=== PATIENT | male | born 1965 | race Caucasian/White ===

== ENCOUNTER 2019-12-11 11:37 | Emergency (ER) | payer MEDICARE, OTHER ==
[~2019-12-11] VITALS: Ht 175.3 cm; Wt 116.2 kg
[2019-12-11] MEDS ORDERED: IV NORMAL SALINE 1,000ML 1,000 ML IV ONE (11:45)
--- NOTE | 2019-12-11 12:18 | EKG ---
[address] [address] Test Date: 2019-12-11 Test Time: 12:02:22 Pat Name: HOMA WINGSLAUGHTERSANGIE Department: Room: Gender: M Inspector [place]: : 1965 Requested By: EDGARDO HUFFMAN Order Number: [id number] Reading MD: Measurements Intervals [place] Rate: 78 P: 38 W[place]: 158 QRS: -34 QRSD: 122 T: 39 QT: 368 QTc: 423 Interpretive Statements SINUS RHYTHM LEFT ATRIAL ABNORMALITY ABNORMAL LEFT AXIS DEVIATION LEFT ANTERIOR FASCICULAR BLOCK INCOMPLETE RIGHT BUNDLE BRANCH BLOCK QRS(T) CONTOUR ABNORMALITY CONSISTENT WITH SEPTAL INFARCT PROBABLY OLD ABNORMAL ECG RI6.02 No previous ECG available for comparison
[2019-12-11 12:29] LABS: BASO % 0 % (0-3); EOS # 0.2 x10^3/uL (0.0-0.7); EOS % 2 % (0-3); HEMATOCRIT 39.5 % (39.0-53.0); HEMOGLOBIN 12.6 g/dL (13.0-17.5); LYMPH # 1.3 x10^3/uL (1.0-4.8); LYMPH % 11 % (24-48); MEAN CORPUSCULAR HEMOGLOBIN 34 pg (25-35); MEAN CORPUSCULAR HGB CONC 32 g/dL (31-37); MEAN CORPUSCULAR VOLUME 108 fL (79-100); MONO # 0.6 x10^3/uL (0.0-1.1); MONO % 5 % (0-9); NEUT # 9.5 x10^3uL (1.8-7.7); NEUT % 82 % (31-73); PLATELET COUNT 245 x10^3/uL (140-400); RED BLOOD COUNT 3.67 x10^6/uL (4.30-5.70); RED CELL DISTRIBUTION WIDTH 17.7 % (11.5-14.5); WHITE BLOOD COUNT 11.7 x10^3/uL (4.0-11.0)
--- NOTE | 2019-12-11 12:42 | RAD ---
CT head and cervical spine without contrast History: Altered mental status, pain, history of falls Technique: Noncontrast CT imaging was performed of the head and cervical spine. Multiplanar reconstruction images are submitted. Exposure: One or more of the following individualized dose reduction techniques were utilized for this examination: 1. Automated exposure control 2. Adjustment of the mA and/or kV according to patient size 3. Use of iterative reconstruction technique. Head CT Comparison: None Findings: There is fairly severe motion degradation. No convincing acute extra-axial or parenchymal hemorrhage is identified. There is no significant intra-axial mass effect, midline shift, or extra-axial fluid collection. The lim-white differentiation of the major vascular territories is preserved. The ventricles, sulci, and cisterns are within normal limits in size and configuration. The mastoid air cells and the visualized paranasal sinuses are aerated. There is no significant focal calvarial abnormality. Impression: 1. No obvious acute intracranial abnormality is identified, exam degraded by motion. Cervical spine CT Comparison: None Findings: There is motion degradation. No convincing acute cervical spine fracture is identified. Vertebral body stature and AP alignment are within normal limits. Atlanto-axial distance is within normal limits. There is appropriate alignment of lateral masses of C1 relative to C2. Occipital condylar-C1 relationship is maintained. There is mild cervical dextroscoliosis. There is multilevel cervical facet degenerative change. There is likely moderate narrowing of the right C4-5 neural foramen. There is some atherosclerotic calcification of the carotid arteries in the neck bilaterally. Impression: 1. No convincing acute cervical spine fracture is identified, exam degraded by motion. Electronically signed by: Evelio Anne MD (12/11/2019 12:39 PM) [id number]
[2019-12-11 12:45] LABS: CALCIUM 8.7 mg/dL (8.5-10.1); CREATININE 1.9 mg/dL (0.7-1.3); POTASSIUM 4.8 mmol/L (3.5-5.1)
[2019-12-11 12:57] LABS: ALBUMIN 2.6 g/dL (3.4-5.0); ALBUMIN/GLOBULIN RATIO 0.6 (1.0-1.7); MAGNESIUM 2.4 mg/dL (1.8-2.4); TOTAL BILIRUBIN 0.1 mg/dL (0.2-1.0); TOTAL PROTEIN 7.2 g/dL (6.4-8.2)
--- NOTE | 2019-12-11 13:38 | PHYS DOC ---
Past History Past Medical History: Anxiety, COPD, Depression, Diabetes, GERD, High Cholesterol, Hypertension, Pancreatitis Past Surgical History: Other Additional Past Surgical Histo: STENTS TO BOTH LEGS, KNA TO RIGHT LEG, GANGRENE TO GROIN Additional Smoking Information: 2 PACKS/DAY Alcohol Use: None General Adult EDM: Chief Complaint: ALTERED MENTAL STATUS HPI: HPI: Patient is a [age] year old [sex] who presents with [] Review of Systems: Review of Systems: Constitutional: Denies fever or chills Eyes: Denies change in visual acuity HENT: Denies nasal congestion or sore throat Respiratory: Denies cough or shortness of breath Cardiovascular: Denies chest pain or edema GI: Denies abdominal pain, nausea, vomiting, bloody stools or diarrhea : Denies dysuria Musculoskeletal: Denies back pain or joint pain Integument: Denies rash Neurologic: Denies headache, focal weakness or sensory changes Endocrine: Denies polyuria or polydipsia Lymphatic: Denies swollen glands Psychiatric: Denies depression or anxiety Heart Score: Risk Factors: Risk Factors: DM, Current or recent (<one month) smoker, HTN, HLP, family history of CAD, obesity. Risk Scores: Score 0 - 3: 2.5% MACE over next 6 weeks - Discharge Home Score 4 - 6: 20.3% MACE over next 6 weeks - Admit for Clinical Observation Score 7 - 10: 72.7% MACE over next 6 weeks - Early Invasive Strategies Current Medications: Current Meds: Current Medications Medications (Trade) Dose Ordered Sig/Gabriel Start Time Stop Time Status Last Admin Dose Admin Sodium Chloride 1,000 ml @ 1,000 mls/hr 1X ONCE 12/11/19 11:45 12/11/19 12:44 DC 12/11/19 12:34 1,000 MLS/HR Allergies: Allergies: Allergies Coded Allergies Type Severity Reaction Last Updated Verified No Known Drug Allergies 12/11/19 No Physical Exam: PE: Constitutional: Well developed, well nourished, no acute distress, non-toxic appearance. [] HENT: Normocephalic, atraumatic, bilateral external ears normal, oropharynx moist, no oral exudates, nose normal. [] Eyes: PERRLA, EOMI, conjunctiva normal, no discharge. [] Neck: Normal range of motion, no tenderness, supple, no stridor. [] Cardiovascular:Heart rate regular rhythm, no murmur [] Lungs & Thorax: Bilateral breath sounds clear to auscultation [] Abdomen: Bowel sounds normal, soft, no tenderness, no masses, no pulsatile masses. [] Skin: Warm, dry, no erythema, no rash. [] Back: No tenderness, no CVA tenderness. [] Extremities: No tenderness, no cyanosis, no clubbing, ROM intact, no edema. [] Neurologic: Alert and oriented X 3, normal motor function, normal sensory function, no focal deficits noted. [] Psychologic: Affect normal, judgement normal, mood normal. [] Current Patient Data: Labs: Laboratory Tests Test 12/11/19 11:58 12/11/19 12:09 Glucose (Fingerstick) 207 mg/dL (70-99) H White Blood Count 11.7 x10^3/uL (4.0-11.0) H Red Blood Count 3.67 x10^6/uL (4.30-5.70) L Hemoglobin 12.6 g/dL (13.0-17.5) L Hematocrit 39.5 % (39.0-53.0) Mean Corpuscular Volume 108 fL (79-100) H Mean Corpuscular Hemoglobin 34 pg (25-35) Mean Corpuscular Hemoglobin Concent 32 g/dL (31-37) Red Cell Distribution Width 17.7 % (11.5-14.5) H Platelet Count 245 x10^3/uL (140-400) Neutrophils (%) (Auto) 82 % (31-73) H Lymphocytes (%) (Auto) 11 % (24-48) L Monocytes (%) (Auto) 5 % (0-9) Eosinophils (%) (Auto) 2 % (0-3) Basophils (%) (Auto) 0 % (0-3) Neutrophils # (Auto) 9.5 x10^3uL (1.8-7.7) H Lymphocytes # (Auto) 1.3 x10^3/uL (1.0-4.8) Monocytes # (Auto) 0.6 x10^3/uL (0.0-1.1) Eosinophils # (Auto) 0.2 x10^3/uL (0.0-0.7) Basophils # (Auto) 0.0 x10^3/uL (0.0-0.2) Prothrombin Time 9.8 SEC (9.4-11.4) Prothrombin Time INR 0.9 (0.9-1.1) Activated Partial Thromboplast Time 27 SEC (23-33) Sodium Level 136 mmol/L (136-145) Potassium Level 4.8 mmol/L (3.5-5.1) Chloride Level 101 mmol/L (98-107) Carbon Dioxide Level 24 mmol/L (21-32) Anion Gap 11 (6-14) Blood Urea Nitrogen 30 mg/dL (8-26) H Creatinine 1.9 mg/dL (0.7-1.3) H Estimated GFR (Cockcroft-Gault) 37.0 BUN/Creatinine Ratio 16 (6-20) Glucose Level 213 mg/dL (70-99) H Lactic Acid Level 1.2 mmol/L (0.4-2.0) Calcium Level 8.7 mg/dL (8.5-10.1) Magnesium Level 2.4 mg/dL (1.8-2.4) Total Bilirubin 0.1 mg/dL (0.2-1.0) L Aspartate Amino Transferase (AST) 12 U/L (15-37) L Alanine Aminotransferase (ALT) 11 U/L (16-63) L Alkaline Phosphatase 146 U/L (46-116) H Ammonia 15 mcmol/L (11-34) Troponin I Quantitative < 0.017 ng/mL (0-0.055) Total Protein 7.2 g/dL (6.4-8.2) Albumin 2.6 g/dL (3.4-5.0) L Albumin/Globulin Ratio 0.6 (1.0-1.7) L Vital Signs: Vital Signs Date Time Temp Pulse Resp B/P (MAP) Pulse Ox O2 Delivery O2 Flow Rate FiO2 12/11/19 12:48 79 20 116/77 (90) 95 Room Air 12/11/19 11:45 98.0 EKG: EKG: @1202 NSR at 78bpm, NO ST elevation, QRS 122ms, QT/QTc 368/423ms, incomplete RBBB, LAFB Radiology/Procedures: Radiology/Procedures: PROCEDURE: CT HEAD AND CERVICAL SPINE WO CT head and cervical spine without contrast History: Altered mental status, pain, history of falls Technique: Noncontrast CT imaging was performed of the head and cervical spine. Multiplanar reconstruction images are submitted. Exposure: One or more of the following individualized dose reduction techniques were utilized for this examination: 1. Automated exposure control 2. Adjustment of the mA and/or kV according to patient size 3. Use of iterative reconstruction technique. Head CT Comparison: None Findings: There is fairly severe motion degradation. No convincing acute extra-axial or parenchymal hemorrhage is identified. There is no significant intra-axial mass effect, midline shift, or extra-axial fluid collection. The lim-white differentiation of the major vascular territories is preserved. The ventricles, sulci, and cisterns are within normal limits in size and configuration. The mastoid air cells and the visualized paranasal sinuses are aerated. There is no significant focal calvarial abnormality. Impression: 1. No obvious acute intracranial abnormality is identified, exam degraded by motion. Cervical spine CT Comparison: None Findings: There is motion degradation. No convincing acute cervical spine fracture is identified. Vertebral body stature and AP alignment are within normal limits. Atlanto-axial distance is within normal limits. There is appropriate alignment of lateral masses of C1 relative to C2. Occipital condylar-C1 relationship is maintained. There is mild cervical dextroscoliosis. There is multilevel cervical facet degenerative change. There is likely moderate narrowing of the right C4-5 neural foramen. There is some atherosclerotic calcification of the carotid arteries in the neck bilaterally. Impression: 1. No convincing acute cervical spine fracture is identified, exam degraded by motion. Electronically signed by: Evelio Anne MD (12/11/2019 12:39 PM) [id number] Course & Med Decision Making: Course & Med Decision Making Pertinent Labs and Imaging studies reviewed. (See chart for details) [] Dragbing Disclaimer: Dragon Disclaimer: This electronic medical record was generated, in whole or in part, using a voice recognition dictation system. Departure Departure: Impression: Primary Impression: Altered mental status Qualified Codes: R41.82 - Altered mental status, unspecified Additional Impressions: Left against medical advice Urinary tract infection Qualified Codes: N39.0 - Urinary tract infection, site not specified; R31.9 - Hematuria, unspecified Disposition: 01 HOME/RESIDENCE PRIOR TO ADM Condition: STABLE Referrals: MILLI LEA MD (PCP) LISA MURGUIA MD Patient Instructions: Altered Mental Status, Discharge Against Medical Advice, Urinary Tract Infection, Xxph-so-Jazn Scripts Cephalexin (KEFLEX) 500 Mg Capsule 1 CAP PO TID for UTI for 7 Days, #21 CAP 0 Refills Prov: EDGARDO HUFFMAN DO 12/11/19 Justification of Admission: Justification of Admission: Justification of Admission Dx: N/A EDGARDO HUFFMAN DO Dec 11, 2019 13:38
[2019-12-11 14:19] VITALS: BP 111/83
--- NOTE | 2019-12-11 14:30 | RAD ---
EXAM: CHEST 1 VIEW History: Altered mental status COMPARISON: None available. TECHNIQUE: Single portable radiograph of the chest FINDINGS: Low lung volumes and technique accentuates heart size and pulmonary vascularity. Mild cardiomegaly. Mild bibasilar lung airspace opacities likely atelectasis or infiltrates. IMPRESSION: 1. Mild bibasilar lung airspace opacities likely atelectasis or infiltrates. Electronically signed by: Venkata Puri MD (12/11/2019 2:27 PM) [id number]
[2019-12-11 15:01] LABS: BARBITURATES NEG (NEG); BENZODIAZEPINES NEG (NEG); CANNABINOIDS NEG (NEG); COCAINE NEG (NEG); METHADONE NEG (NEG); OPIATES NEG (NEG); PHENCYCLIDINE NEG (NEG)
[2019-12-11 15:02] LABS: AMPHETAMINE/METHAMPHETAMINE NEG (NEG)
[2019-12-11 15:13] LABS: BILIRUBIN,URINE NEG (NEG); CLARITY,URINE CLOUDY; COLOR,URINE AMBER; GLUCOSE,URINE NEG (NEG); NITRITE,URINE NEG (NEG); RBC,URINE >40 /HPF (0-2); UROBILINOGEN,URINE 0.2 mg/dL (0.2 mg/dL)
[2019-12-11 15:14] LABS: BACTERIA,URINE MOD /HPF (0-FEW); SQUAMOUS EPITHELIAL CELL,UR FEW /LPF
[2019-12-11 15:15] LABS: HYALINE CASTS, URINE OCC /HPF
[2019-12-11] MEDS ORDERED: IV NORMAL SALINE 50ML 50 ML ONE (15:23)
[2019-12-11] MEDS ORDERED: cefTRIAXone SODIUM 1 GM VIAL ONE (15:23)
[2019-12-11] MEDS ORDERED: CEPH-264 PO (15:25)
== END 2019-12-11 16:06 | disposition home or self-care (01) ==
LOC: ER 11:37
DX: R41.82 Altered mental status, unspecified (principal); N39.0 Urinary tract infection, site not specified; R31.9 Hematuria, unspecified; F41.9 Anxiety disorder, unspecified; J44.9 Chronic obstructive pulmonary disease, unspecified; F32.9 Major depressive disorder, single episode, unspecified; E11.9 Type 2 diabetes mellitus without complications; K21.9 Gastro-esophageal reflux disease without esophagitis; E78.00 Pure hypercholesterolemia, unspecified; I10 Essential (primary) hypertension; F17.200 Nicotine dependence, unspecified, uncomplicated
CPT/HCPCS: 36415; 70450; 71045; 72125; 80053; 80307; 81001; 82140; 82947; 83605; 83735; 84484; 85025; 85610; 85730; 93005; 96360; 99285; J7030

== ENCOUNTER 2019-12-18 15:46 | Emergency (ER) | payer MEDICARE, OTHER ==
[~2019-12-18] VITALS: Ht 175.3 cm; Wt 116.2 kg
[~2019-12-18 15:46] MED LIST: CEPH-264 PO
[2019-12-18] MEDS ORDERED: LIDOCAINE 1%/EPI 1:100,000 20 ML VIAL. IJ ONE (16:00)
[2019-12-18] MEDS ORDERED: DIPH,PERTUSS(ACELL),TET VAC/PF 0.5 ML SYRINGE. VAX IM ONE (16:30)
[2019-12-18 17:15] VITALS: BP 134/77
--- NOTE | 2019-12-18 17:28 | PHYS DOC ---
Past History Past Medical History: Anxiety, COPD, Depression, Diabetes, GERD, High Cholesterol, Hypertension, Pancreatitis Past Surgical History: Other Additional Past Surgical Histo: STENTS TO BOTH LEGS, KNA TO RIGHT LEG, GANGRENE TO GROIN Additional Smoking Information: 2 PACKS/DAY Alcohol Use: None General Adult EDM: Chief Complaint: LACERATION/AVULSION HPI: HPI: Patient is a 54-year-old male who presented to ER today for evaluation of a laceration of his left hand. Patient said he tried to open a tuna can with it hand and excellently cut his left hand. Patient is not up-to-date on his tetanus vaccination. Patient is on blood thinner. Patient can open and close his left hand without any problem, he can move the thumb in all direction without any problem. Review of Systems: Review of Systems: Constitutional: Denies fever or chills Eyes: Denies change in visual acuity HENT: Denies nasal congestion or sore throat Respiratory: Denies cough or shortness of breath Cardiovascular: Denies chest pain or edema GI: Denies abdominal pain, nausea, vomiting, bloody stools or diarrhea : Denies dysuria Musculoskeletal: Denies back pain or joint pain Integument: positive for laceration of left hand Neurologic: Denies headache, focal weakness or sensory changes Endocrine: Denies polyuria or polydipsia Lymphatic: Denies swollen glands Psychiatric: Denies depression or anxiety Heart Score: Risk Factors: Risk Factors: DM, Current or recent (<one month) smoker, HTN, HLP, family history of CAD, obesity. Risk Scores: Score 0 - 3: 2.5% MACE over next 6 weeks - Discharge Home Score 4 - 6: 20.3% MACE over next 6 weeks - Admit for Clinical Observation Score 7 - 10: 72.7% MACE over next 6 weeks - Early Invasive Strategies Current Medications: Current Meds: Current Medications Medications (Trade) Dose Ordered Sig/Gabriel Start Time Stop Time Status Last Admin Dose Admin Diphtheria/ Pertussis/Tetanus Vacc (ADACEL TDap SYRINGE) 0.5 ml ONCE ONCE 12/18/19 16:30 12/18/19 16:31 DC 12/18/19 16:30 0.5 ML Lidocaine/ Epinephrine (Xylocaine 1%-Epi 1:100,000) 20 ml 1X ONCE 12/18/19 16:00 8/17/20 16:01 DC 12/18/19 16:28 20 ML Allergies: Allergies: Allergies Coded Allergies Type Severity Reaction Last Updated Verified No Known Drug Allergies 12/11/19 No Physical Exam: PE: Constitutional: Well developed, well nourished, no acute distress, non-toxic appearance. [] HENT: Normocephalic, atraumatic, bilateral external ears normal, oropharynx moist, no oral exudates, nose normal. [] Eyes: PERRLA, EOMI, conjunctiva normal, no discharge. [] Neck: Normal range of motion, no tenderness, supple, no stridor. [] Cardiovascular:Heart rate regular rhythm, no murmur [] Lungs & Thorax: Bilateral breath sounds clear to auscultation [] Abdomen: Bowel sounds normal, soft, no tenderness, no masses, no pulsatile masses. [] Skin: there is a 2 cm laceration on the left thenar eminence, bleeding, no tendon injury. Back: No tenderness, no CVA tenderness. [] Extremities: No tenderness, no cyanosis, no clubbing, ROM intact, no edema. [] Neurologic: Alert and oriented X 3, normal motor function, normal sensory function, no focal deficits noted. [] Psychologic: Affect normal, judgement normal, mood normal. [] Current Patient Data: Vital Signs: Vital Signs Date Time Temp Pulse Resp B/P (MAP) Pulse Ox O2 Delivery O2 Flow Rate FiO2 12/18/19 15:55 98.3 89 20 131/68 (89) 95 Room Air EKG: EKG: [] Radiology/Procedures: Radiology/Procedures: Indication: left hand laceration Procedure: The patient was placed in the appropriate position and anesthesia around the wound with 10 ml of 1% lidocaine with epi . The area was then CLEANED WITH SALINE.. The laceration was CLOSED WITH 3 SUTURES, 4-O-NYLON ON THE SKIN SURFACE, SIMPLE INTERRUPTOUS METHOD. The wound area was then dressed with GAUZE. Total repaired wound length: 2 CM Other Items: NONE The patient tolerated the procedure well. Complications: none. Course & Med Decision Making: Course & Med Decision Making Pertinent Labs and Imaging studies reviewed. (See chart for details) [] Dragon Disclaimer: Dragon Disclaimer: This electronic medical record was generated, in whole or in part, using a voice recognition dictation system. Departure Departure: Impression: Primary Impression: Laceration of left hand Disposition: HOME/RESIDENCE PRIOR TO ADM Condition: STABLE Referrals: MILLI LEA MD (PCP) FOLLOW UP WITH YOUR DOCTOR IN 7 DAYS FOR SUTURES REMOVAL Patient Instructions: Laceration Care, Adult, VIS, Tetanus, Diphtheria, and Pertussis (Tdap) - CDC Additional Instructions: Thank you for visiting our Emergency Department. We appreciate you trusting us with your care. If any additional problems come up don't hesitate to return to visit us. Please follow up with your primary care provider so they can plan additional care if needed and know about the problem that you had. If symptoms worsen come back to the Emergency Department. Any concerning symptoms that start such as chest pain, shortness of air, weakness or numbness on one side of the body, running high fevers or any other concerning symptoms return to the ER. Justification of Admission: Justification of Admission: Justification of Admission Dx: N/A LEONARD MIXON DO Dec 18, 2019 17:28
== END 2019-12-18 17:30 | disposition home or self-care (01) ==
LOC: ER 15:46
DX: S61.412A Laceration without foreign body of left hand, initial encounter (principal); F41.9 Anxiety disorder, unspecified; J44.9 Chronic obstructive pulmonary disease, unspecified; F32.9 Major depressive disorder, single episode, unspecified; E11.9 Type 2 diabetes mellitus without complications; K21.9 Gastro-esophageal reflux disease without esophagitis; E78.00 Pure hypercholesterolemia, unspecified; I10 Essential (primary) hypertension; F17.200 Nicotine dependence, unspecified, uncomplicated; W26.8XXA Contact with other sharp object(s), not elsewhere classified, initial encounter; Y93.89 Activity, other specified; Y92.89 Other specified places as the place of occurrence of the external cause; Y99.8 Other external cause status
CPT/HCPCS: 12001; 90471; 90715; 99283

== ENCOUNTER → 2019-12-21 | Outpatient (CLI) | payer MEDICARE, OTHER ==
[2019-12-18 17:15] VITALS: BP 134/77
--- NOTE | 2019-12-21 16:54 | RAD ---
EXAM: Cervical spine, 4 views. HISTORY: Pain. COMPARISON: None. FINDINGS: 4 views of the cervical spine are obtained. There is no listhesis. The vertebral bodies are normal in height and the disc spaces are preserved. There is multilevel facet arthropathy. IMPRESSION: No acute osseous finding. Multilevel facet arthropathy. Electronically signed by: Estela Aguilera MD (12/21/2019 4:51 PM) [facility]
== END | disposition home or self-care (01) ==
LOC: DXRAD 14:30
PROVIDERS: ATTEND Psychiatry & Neurology Neurology
DX: M47.812 Spondylosis without myelopathy or radiculopathy, cervical region (principal)
CPT/HCPCS: 72040

== ENCOUNTER 2020-01-12 14:56 | Observation (INO) | payer MEDICARE, OTHER ==
[~2020-01-12] VITALS: Ht 162.6 cm; Wt 115.2 kg
[2020-01-12] MEDS ORDERED: IV NORMAL SALINE 1,000ML 1,000 ML IV ONE (15:15)
--- NOTE | 2020-01-12 16:03 | RAD ---
EXAM: Head and cervical spine CT without contrast. HISTORY: Seizure-like activity. Fall. Pain. TECHNIQUE: Computed tomographic images of the head and cervical spine were obtained without contrast. *One or more of the following individualized dose reduction techniques were utilized for this examination: 1. Automated exposure control. 2. Adjustment of the mA and/or kV according to patient size. 3. Use of iterative reconstruction technique. COMPARISON: 12/11/2019. FINDINGS: Head: There is no hemorrhage. There is no mass effect or midline shift. The ventricles are prominent for patient age. However, this appears to be within appropriate limits for cerebral volume. There is suggestion of a small chronic lacunar infarct involving the left caudate nucleus. There are subtle areas of hypodensity within the cerebral white matter which can be seen with chronic small vessel disease. There is mild developed multiple asymmetry in the right greater than left occipital horns. The lim-white matter differential pattern is intact. The orbits, paranasal sinuses mastoid air cells are unremarkable. There is no suspicious calvarial lesion. Cervical spine: There is cervical curvature likely due to thoracic scoliosis. There is minimal anterolisthesis of C2 on C3, within physiologic limits. There is multilevel facet arthropathy. There is no fracture or suspicious osseous lesion. There is calcified atherosclerotic plaque within the carotid bifurcations. The lung apices are unremarkable. At C2-C3, there is moderate left facet arthropathy. There is no stenosis. At C3-C4, there is endplate remodeling. There is mild to moderate left facet arthropathy. There is no stenosis. At C4-C5, there is a disc bulge and endplate remodeling. There is moderate right greater than left facet arthropathy. There is mild right foraminal stenosis. At C5-C6, there is mild right greater than left facet arthropathy. There is no stenosis. At C6-C7, there is mild right facet arthropathy. There is no stenosis. IMPRESSION: 1. No acute intracranial finding. Note is made that MRI is more sensitive for acute infarction. 2. Bilateral cerebral white matter changes, likely due to chronic small vessel disease. 3. Suspected small chronic lacunar infarct within the left caudate nucleus. 4. Degenerative change involving the cervical spine, described above. There is no acute cervical spine finding. Electronically signed by: Estela Aguilera MD (01/12/2020 4:00 PM) [id number]
--- NOTE | 2020-01-12 16:12 | PHYS DOC ---
General Adult EDM: Chief Complaint: MECHANICAL FALL HPI: HPI: Homa Wilburn is a 54-year-old male who presents to our ED approximately 2 hours post fall. Patient has a right below the knee amputation, is currently undergoing treatment with wound VAC due to chronic wounds. He was walking using his walker, when he fell. Patient does report hitting her head and does not know if they lost consciousness, patient's did not witness the fall however she is not available to give her testimony. He has been having ongoing motor tics that he describes as "seizures." He reports having been seen by neurologist for evaluation of these "seizures" they did not place him on medication. Collection of patient's history was complicated by facial oral tics, which significantly decreased patient's ability to speak. (EDGARDO HUFFMAN DO) Review of Systems: Review of Systems: Constitutional: Denies fever or chills Eyes: Denies change in visual acuity HENT: Denies nasal congestion or sore throat Respiratory: Denies cough or shortness of breath Cardiovascular: Denies chest pain or edema GI: Denies abdominal pain, nausea, or vomiting Musculoskeletal: Denies back pain; reports pain to right BKA wound Integument: Denies rash Neurologic: Denies headache; reports "whole body" spasms Psychiatric: Denies depression or anxiety (EDGARDO HUFFMAN DO) Heart Score: HEART Score for Chest Pain: HEART Score for Chest Pain Response (Comments) Value History Moderately Suspicious 1 ECG Nonspecific Repolarizatio 1 Age >45 - < 65 1 Risk Factors 1 or 2 Risk Factors 1 Troponin < Normal Limit 0 Total 4 Current Medications: Current Meds: Current Medications Medications (Trade) Dose Ordered Sig/Gabriel Start Time Stop Time Status Last Admin Dose Admin Lorazepam (Ativan Inj) 1 mg 1X ONCE 01/12/20 15:15 01/12/20 15:16 UNV Sodium Chloride 1,000 ml @ 1,000 mls/hr 1X ONCE 01/12/20 15:15 01/12/20 16:14 UNV (EDGARDO HUFFMAN DO) Physical Exam: PE: Constitutional: Well developed, well nourished, no acute distress, non-toxic appearance. HENT: Normocephalic, atraumatic, oropharynx moist, no oral exudates, nose normal. Cranial nerves II through XII intact bilaterally, mild noted weakness in shoulder shrug and head turn suggesting some minor involvement of accessory spinal nerve. Eyes: PERRL, EOMI, conjunctiva normal, no discharge. Neck: Normal range of motion, no tenderness, supple Cardiovascular: Regular rate and rhythm no murmurs. S1 and S2 normal. S3 and S4 are not heard. Lungs & Thorax: Bilateral breath sounds clear to auscultation, no respiratory distress Abdomen: Soft, no tenderness Skin: Warm, dry, no erythema, no rash. Extremities: No tenderness, no cyanosis, no clubbing, ROM intact, no edema. Right-sided below the knee amputation with approximately 20 to 30 square inches of irregularly-shaped wound VAC applied to deep wounds. Several significant deep ulcerated wounds that appear to have healed on right lower extremity, above the wound VAC. Neurologic: Alert and oriented X 3, normal motor function, normal sensory function, no focal deficits noted. intermittent focal tics noted to face and RLE (EDGARDO HUFFMAN DO) EKG: EKG: [] (EDGARDO HUFFMAN DO) EKG: My interpretation EKG shows a sinus rhythm at 85 bpm. Does have a left axis with a interventricular block. No findings of acute STEMI of contralateral changes but is an abnormal EKG (ENRIKE LOPEZ MD) Radiology/Procedures: Radiology/Procedures: PROCEDURE: CT HEAD AND CERVICAL SPINE WO EXAM: Head and cervical spine CT without contrast. HISTORY: Seizure-like activity. Fall. Pain. TECHNIQUE: Computed tomographic images of the head and cervical spine were obtained without contrast. *One or more of the following individualized dose reduction techniques were utilized for this examination: 1. Automated exposure control. 2. Adjustment of the mA and/or kV according to patient size. 3. Use of iterative reconstruction technique. COMPARISON: 12/11/2019. FINDINGS: Head: There is no hemorrhage. There is no mass effect or midline shift. The ventricles are prominent for patient age. However, this appears to be within appropriate limits for cerebral volume. There is suggestion of a small chronic lacunar infarct involving the left caudate nucleus. There are subtle areas of hypodensity within the cerebral white matter which can be seen with chronic small vessel disease. There is mild developed multiple asymmetry in the right greater than left occipital horns. The lim-white matter differential pattern is intact. The orbits, paranasal sinuses mastoid air cells are unremarkable. There is no suspicious calvarial lesion. Cervical spine: There is cervical curvature likely due to thoracic scoliosis. There is minimal anterolisthesis of C2 on C3, within physiologic limits. There is multilevel facet arthropathy. There is no fracture or suspicious osseous lesion. There is calcified atherosclerotic plaque within the carotid bifurcations. The lung apices are unremarkable. At C2-C3, there is moderate left facet arthropathy. There is no stenosis. At C3-C4, there is endplate remodeling. There is mild to moderate left facet arthropathy. There is no stenosis. At C4-C5, there is a disc bulge and endplate remodeling. There is moderate right greater than left facet arthropathy. There is mild right foraminal stenosis. At C5-C6, there is mild right greater than left facet arthropathy. There is no stenosis. At C6-C7, there is mild right facet arthropathy. There is no stenosis. IMPRESSION: 1. No acute intracranial finding. Note is made that MRI is more sensitive for acute infarction. 2. Bilateral cerebral white matter changes, likely due to chronic small vessel disease. 3. Suspected small chronic lacunar infarct within the left caudate nucleus. 4. Degenerative change involving the cervical spine, described above. There is no acute cervical spine finding. Electronically signed by: Estela Jacob MD (01/12/2020 4:00 PM) [id number] (EDGARDO HUFFMAN DO) Radiology/Procedures: [address] [address] IMAGING REPORT Signed PATIENT: HOMA WILBURN ACCOUNT: [id number] : 1965 LOCATION: ER AGE: 54 SEX: M EXAM STATUS: REG ER ORD. PHYSICIAN: ENRIKE LOPEZ MD REASON: fall in ED PROCEDURE: CHEST AP ONLY EXAM: AP View of the chest DATE: 01/12/2020 6:19 PM INDICATION: fall in ED COMPARISON: No Prior FINDINGS/ IMPRESSION: The heart is not enlarged. Aorta is tortuous. Bilateral perihilar and right greater than left lung base airspace opacities may be seen with pulmonary edema although multifocal consolidative process may also have this appearance. Trace right pleural effusion. No pneumothorax. Electronically signed by: Ugo Cassidy MD (01/12/2020 7:12 PM) [facility] DICTATED AND SIGNED BY: UGO CASSIDY MD DATE: 01/12/201911 CC: ENRIKE LOPEZ MD; MILLI LEA MD ~ IMAGING REPORT Signed PATIENT: HOMA WILBURN ACCOUNT: [id number] : 1965 LOCATION: ER AGE: 54 SEX: M EXAM STATUS: REG ER ORD. PHYSICIAN: EDGARDO HUFFMAN DO REASON: focal seizure like activity, fall, pain PROCEDURE: CT HEAD AND CERVICAL SPINE WO EXAM: Head and cervical spine CT without contrast. HISTORY: Seizure-like activity. Fall. Pain. TECHNIQUE: Computed tomographic images of the head and cervical spine were obtained without contrast. *One or more of the following individualized dose reduction techniques were utilized for this examination: 1. Automated exposure control. 2. Adjustment of the mA and/or kV according to patient size. 3. Use of iterative reconstruction technique. COMPARISON: 12/11/2019. FINDINGS: Head: There is no hemorrhage. There is no mass effect or midline shift. The ventricles are prominent for patient age. However, this appears to be within appropriate limits for cerebral volume. There is suggestion of a small chronic lacunar infarct involving the left caudate nucleus. There are subtle areas of hypodensity within the cerebral white matter which can be seen with chronic small vessel disease. There is mild developed multiple asymmetry in the right greater than left occipital horns. The lim-white matter differential pattern is intact. The orbits, paranasal sinuses mastoid air cells are unremarkable. There is no suspicious calvarial lesion. Cervical spine: There is cervical curvature likely due to thoracic scoliosis. There is minimal anterolisthesis of C2 on C3, within physiologic limits. There is multilevel facet arthropathy. There is no fracture or suspicious osseous lesion. There is calcified atherosclerotic plaque within the carotid bifurcations. The lung apices are unremarkable. At C2-C3, there is moderate left facet arthropathy. There is no stenosis. At C3-C4, there is endplate remodeling. There is mild to moderate left facet arthropathy. There is no stenosis. At C4-C5, there is a disc bulge and endplate remodeling. There is moderate right greater than left facet arthropathy. There is mild right foraminal stenosis. At C5-C6, there is mild right greater than left facet arthropathy. There is no stenosis. At C6-C7, there is mild right facet arthropathy. There is no stenosis. IMPRESSION: 1. No acute intracranial finding. Note is made that MRI is more sensitive for acute infarction. 2. Bilateral cerebral white matter changes, likely due to chronic small vessel disease. 3. Suspected small chronic lacunar infarct within the left caudate nucleus. 4. Degenerative change involving the cervical spine, described above. There is no acute cervical spine finding. Electronically signed by: Estela Jacob MD (01/12/2020 4:00 PM) [id number] DICTATED AND SIGNED BY: ESTELA JACOB MD DATE: 01/12/20 1600 CC: MILLI LEA MD; EDGARDO HUFFMAN DO ~ (ENRIKE LOPEZ MD) Course & Med Decision Making: Course & Med Decision Making Patient presents with focal tics/seizure like activity. Hx of prior episodes. Patient also with fall in transferring. Neurologically appears at baseline. Ativan given. Labs obtained and pending. Sign out given to Dr. Lopez for further evaluation and final disposition. Discussed current findings and plan with patient, who acknowledges understanding and agreement. (EDGARDO HUFFMAN DO) Course & Med Decision Making See Dr. Huffman chart for details. Assumed care of [pt. at shift change. Pt. states he been feeling more weak the last couple. Some hx of fever and chills. Increased coughing today. COVID order possible transfer and transfer to [facility] for MRI - after evaluation by Dr. Hernandez. Discussed presentation, testing and tx. plan with Dr. Sommer. Admit and Neurology consult with Dr. Lee. Impression: 1. Mental Status Change 2. Syncope 3. Fall 4. Rt. BLK Amputation and Decub 5. Hx. Seizure Activity 6. Leukocytosis 12. 2 7. Anemia 11.1 Hgb-macrocytic indices 103 8. Malnutrition Alb 2.5 9. Elevated creatinine 1.7 10. Hypoglycemic -36 11. Pneumonia/ Atypical Infiltrates (ENRIKE LOPEZ MD) Dragon Disclaimer: Dragon Disclaimer: This electronic medical record was generated, in whole or in part, using a voice recognition dictation system. (EDGARDO HUFFMAN DO) Departure Departure: Impression: Primary Impression: Seizure-like activity Justification of Admission: Justification of Admission: Justification of Admission Dx: N/A (EDGARDO HUFFMAN DO) Justification of Admission Dx: Yes Altered Mental Status: Altered Mental Status (ENRIKE LOPEZ MD) Dragon Disclaimer This chart was dictated in whole or in part using Voice Recognition software in a busy, high-work load, and often noisy Emergency Department environment. It may contain unintended and wholly unrecognized errors or omissions. (ENRIKE LOPEZ MD) Dragon Disclaimer This chart was dictated in whole or in part using Voice Recognition software in a busy, high-work load, and often noisy Emergency Department environment. It may contain unintended and wholly unrecognized errors or omissions. (ENRIKE LOPEZ MD) EDGARDO HUFFMAN DO Jan 12, 2020 16:12 ENRIKE LOPEZ MD Jan 12, 2020 16:25
[2020-01-12 16:45] LABS: BASO # 0.1 x10^3/uL (0.0-0.2); BASO % 1 % (0-3); EOS # 0.2 x10^3/uL (0.0-0.7); EOS % 2 % (0-3); HEMATOCRIT 34.8 % (39.0-53.0); HEMOGLOBIN 11.1 g/dL (13.0-17.5); LYMPH # 1.5 x10^3/uL (1.0-4.8); LYMPH % 12 % (24-48); MEAN CORPUSCULAR HEMOGLOBIN 33 pg (25-35); MEAN CORPUSCULAR HGB CONC 32 g/dL (31-37); MEAN CORPUSCULAR VOLUME 103 fL (79-100); MONO # 1.3 x10^3/uL (0.0-1.1); MONO % 11 % (0-9); NEUT # 9.1 x10^3uL (1.8-7.7); NEUT % 75 % (31-73); PLATELET COUNT 234 x10^3/uL (140-400); RED CELL DISTRIBUTION WIDTH 17.5 % (11.5-14.5); WHITE BLOOD COUNT 12.2 x10^3/uL (4.0-11.0)
[2020-01-12 16:50] LABS: MAGNESIUM 2.6 mg/dL (1.8-2.4); POTASSIUM 3.8 mmol/L (3.5-5.1)
[2020-01-12 17:08] LABS: ALBUMIN 2.5 g/dL (3.4-5.0); ALBUMIN/GLOBULIN RATIO 0.6 (1.0-1.7); CALCIUM 8.3 mg/dL (8.5-10.1); CREATININE 1.7 mg/dL (0.7-1.3); GFR 42.1; TOTAL BILIRUBIN 0.2 mg/dL (0.2-1.0)
[2020-01-12] MEDS ORDERED: DEXTROSE 50% 25 GM / 50ML DISP.SYRIN. IV ONE (17:15)
[2020-01-12] MEDS ORDERED: VANCOMYCIN 1 GM in IV NORMAL SALINE 250ML 250 ML IV ONE (18:30)
[2020-01-12] MEDS ORDERED: ONDANSETRON PF 4 MG/2 ML VIAL. IVP PRN (18:30)
[2020-01-12] MEDS ORDERED: ACETAMINOPHEN 325 MG TABLET PO PRN (18:30)
--- NOTE | 2020-01-12 18:51 | RAD ---
EXAM: AP, oblique and lateral views right knee DATE: 01/12/2020 6:15 PM INDICATION: Reason: fall in ED / Spl. Instructions: / History: COMPARISON: No Prior FINDINGS/ IMPRESSION: 1. Changes of [id number] of dictation are seen. 2. No acute fracture or dislocation. Decreased bone mineral density. 3. Vascular calcifications and stents are seen. 4. No definite erosive or destructive change to suggest osteomyelitis. 5. No knee joint effusion. Electronically signed by: Ugo eL MD (01/12/2020 6:48 PM) JAMES
[2020-01-12] MEDS ORDERED: VANCOMYCIN 2 GM in IV NORMAL SALINE 500ML 500 ML IV ONE (19:00)
--- NOTE | 2020-01-12 19:15 | RAD ---
EXAM: AP View of the chest DATE: 01/12/2020 6:19 PM INDICATION: fall in ED COMPARISON: No Prior FINDINGS/ IMPRESSION: The heart is not enlarged. Aorta is tortuous. Bilateral perihilar and right greater than left lung base airspace opacities may be seen with pulmonary edema although multifocal consolidative process may also have this appearance. Trace right pleural effusion. No pneumothorax. Electronically signed by: Ugo Le MD (01/12/2020 7:12 PM) JAMES
[2020-01-12] MEDS ORDERED: IPRATRPIUM/ALBUTEROL 0.5/2.5MG 3 ML NEBU. NEB SCH (20:00)
[2020-01-12 20:38] VITALS: BP 141/78
--- NOTE | 2020-01-12 22:00 | NUR ---
The patient, HOMA CAMACHO, 54 y/o, M admitted by ESTELA EVANS MD, to room 109, was given written information regarding hospital policies, unit procedures and contact persons. Valuables were checked and left with the patient. Pt is agitated, disoriented, tremors periodically. Blood glucose checked. Wounds examined. Physical needs assessed. Will continue to monitor.
[2020-01-12] MEDS ORDERED: METO10TA PO (22:19)
[2020-01-12] MEDS ORDERED: INSU100V13 SQ (22:19)
[2020-01-12] MEDS ORDERED: LISI2.5T PO (22:19)
[2020-01-12] MEDS ORDERED: ISOS20TA2 PO (22:19)
[2020-01-12] MEDS ORDERED: BUPR300T92 PO (22:19)
[2020-01-12] MEDS ORDERED: CARV25TA2 PO (22:19)
[2020-01-12] MEDS ORDERED: BUSP30TA PO (22:19)
[2020-01-12] MEDS ORDERED: CLOP75TA PO (22:19)
[2020-01-12] MEDS ORDERED: OMEP40CA45 PO (22:19)
[2020-01-12] MEDS ORDERED: BUDE10.22 IH (22:19)
[2020-01-12] MEDS ORDERED: OLAN5TAB9 PO (22:19)
[2020-01-12] MEDS ORDERED: VENL150C6 PO (22:19)
[2020-01-12] MEDS ORDERED: CRESTOR20 MG PO (22:19)
[2020-01-12] MEDS ORDERED: HYDR-2769 PO (22:19)
[2020-01-12] MEDS ORDERED: DEXTROSE 50% 25 GM / 50ML DISP.SYRIN. IV PRN (22:30)
[2020-01-12 23:06] VITALS: BP 137/82
--- NOTE | 2020-01-13 00:48 | NUR ---
Pt's dressing and wound vac came unattached to BKA medial. Area pink and granulated, sensitive to touch. Cleansed with wound wash. Wet to dry dressing applied. Pt made comfortable as possible. Will continue to monitor.
[2020-01-13] MEDS: HYDROcodone/APAP 10/325 1 TAB TABLET PO PRN ×2 (05:41)
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
[2020-01-13 05:46] VITALS: BP 166/78
--- NOTE | 2020-01-13 06:52 | EKG ---
[address] [address] Test Date: 2020-01-12 Test Time: 19:26:32 Pat Name: HOMA WINGTONOPAHANGIE Department: Room: 109 A Gender: M Grocery Stocker: : 1965 Requested By: ESTELA EVANS Order Number: [id number] Reading MD: Measurements Intervals [place] Rate: 85 P: 42 [place]: 162 QRS: -33 QRSD: 128 T: 49 QT: 372 QTc: 448 Interpretive Statements SINUS RHYTHM ABNORMAL LEFT AXIS DEVIATION NON SPECIFIC INTRAVENTRICULAR BLOCK ABNORMAL ECG RI6.02 Compared to ECG 01/12/2020 19:19:55 Myocardial infarct finding no longer present
[2020-01-13] MEDS ORDERED: PANTOPRAZOLE 40 MG TABLET. PO SCH (07:30)
[2020-01-13] MEDS ORDERED: CARVEDILOL 12.5 MG TABLET PO SCH (08:00)
[2020-01-13] MEDS ORDERED: BUDESONIDE 0.5 MG/2 ML NEBU NEB SCH (08:00)
[2020-01-13] MEDS ORDERED: buPROPion XL 300 MG TAB.ER.24H. PO SCH (09:00)
[2020-01-13] MEDS ORDERED: NON FORMULARY ITEM (Budesonide/Formoterol Fumarate (Symbicort 80-4.5 Mcg Inhaler) 2 PUFF) IH SCH (09:00)
[2020-01-13] MEDS ORDERED: BUSPIRONE HCL PO SCH (09:00)
[2020-01-13] MEDS ORDERED: CLOPIDOGREL BISULFATE 75 MG TABLET PO SCH (09:00)
[2020-01-13] MEDS ORDERED: VENLAFAXINE 50 MG TABLET. PO SCH (09:00)
[2020-01-13] MEDS ORDERED: ISOSORBIDE MONONITRATE ER 30 MG TAB.ER.24H PO SCH (09:00)
[2020-01-13] MEDS ORDERED: LISINOPRIL 2.5 MG TABLET PO SCH (09:00)
[2020-01-13] MEDS ORDERED: ATORVASTATIN CALCIUM 20 MG TABLET PO SCH (21:00)
[2020-01-13] MEDS ORDERED: OLANZapine 5 MG TABLET PO SCH (21:00)
[2020-01-13] MEDS ORDERED: METOCLOPRAMIDE 10 MG TABLET PO SCH (21:00)
== END 2020-01-13 06:15 | disposition left against medical advice (07) ==
LOC: ER 14:56 → INTOOBSV 18:15 → MERGE 18:15 → 1 SOUTH 18:15
PROVIDERS: ADMIT Internal Medicine; ATTEND Internal Medicine
DX: R55 Syncope and collapse (principal); J18.9 Pneumonia, unspecified organism; D64.9 Anemia, unspecified; E16.2 Hypoglycemia, unspecified; E46 Unspecified protein-calorie malnutrition; I73.9 Peripheral vascular disease, unspecified
CPT/HCPCS: 36415; 70450; 71045; 72125; 73562; 80053; 82550; 82947; 83605; 83735; 84484; 85025; 93005; 94640; 96361; 96365; 96366; 96367; 96375; 99285; G0378; J0696; J2060; J3370; J7030; J7040; G0379

== ENCOUNTER 2020-05-14 10:47 | Emergency (ER) | payer MEDICARE, OTHER ==
[~2020-05-14] VITALS: Ht 175.3 cm; Wt 118.1 kg
[~2020-05-14 10:47] MED LIST changes: +BUDE10.22 IH; +BUPR300T92 PO; +BUSP30TA PO; +CARV25TA2 PO; +CLOP75TA PO; +CRESTOR20 MG PO; +HYDR-2769 PO; +INSU100V13 SQ; +ISOS20TA2 PO; +LISI2.5T PO; +METO10TA PO; +OLAN5TAB9 PO; +OMEP40CA45 PO; +VENL150C6 PO
[2020-05-14 11:15] VITALS: BP 150/81
--- NOTE | 2020-05-14 12:20 | RAD ---
Right knee 3 views INDICATION:, Infection. Pressure. History of lower extremity amputee 2 years ago COMPARISON: None. FINDINGS: 3 views right knee show a right below the knee amputation. Diffuse demineralization. No fracture or m alalignment. There is undulation to the skin surface that could reflect postsurgical change versus ti ssue necrosis. No abnormal soft tissue gas is identified. There is mild edema in the right knee soft tissues. No bony erosive changes although the soft tissue defect in the right leg stump appears to ex tend to the bone surface. Soft tissues also notable for femoral artery stent. IMPRESSION: Osteopenia and degenerative change status post right BKA with an open wound abutting bone but showing no radiographic findings suspicious for osteomyelitis currently. Electronically signed by: Michelle Escobedo MD (05/14/2020 12:18 PM) [id number]
--- NOTE | 2020-05-14 12:39 | PHYS DOC ---
Past History Past Medical History: Anxiety, COPD, Depression, Diabetes, GERD, High Cholesterol, Hypertension, Pancreatitis Past Surgical History: Other Additional Past Surgical Histo: STENTS TO BOTH LEGS, KNA TO RIGHT LEG, GANGRENE TO GROIN Alcohol Use: None General Adult EDM: Chief Complaint: WOUND CHECK HPI: HPI: 54-year-old male past medical history significant for peripheral arterial and vascular disease, diabetes, hypertension hyperlipidemia and obesity, presents to the ED requesting a wound check of his right BKA ("Dr. Suarez? s/p 2 yrs ago), referred here by his home health aide concern for black wound at distal stump. Patient reports he has had routine skin infections of the stump and used to follow-up with the wound care center. No longer wishes to follow-up with his vascular surgeon because " all they do is remove skin tissue every few months, it never fixes the problem." Pt reports stents placed in both thighs prior to R BKA. Glucose in 150s today. Review of Systems: Review of Systems: Constitutional: Denies fever or chills Eyes: Denies change in visual acuity HENT: Denies nasal congestion or sore throat Respiratory: Denies cough or shortness of breath Cardiovascular: Denies chest pain or edema GI: Denies abdominal pain, nausea, vomiting, bloody stools or diarrhea : Denies dysuria or hematuria Musculoskeletal: Denies back pain or joint swelling Integument: Denies diaphoresis or crepitus Neurologic: Denies headache, neck stiffness, focal weakness or sensory changes Endocrine: Denies polyuria or polydipsia Lymphatic: Denies swollen glands Psychiatric: Denies depression or anxiety Allergies: Allergies: Allergies Coded Allergies Type Severity Reaction Last Updated Verified No Known Drug Allergies 12/11/19 No Physical Exam: PE: Constitutional: Well developed, well nourished, no acute distress, non-toxic appearance. HENT: Normocephalic, atraumatic, Eyes: EOMI, conjunctiva normal, no discharge. Neck: Normal range of motion, supple, Cardiovascular: S1/2 present, regular rhythm Lungs & Thorax: Speaking in full sentences, bilateral equal chest rise, no tachypnea or increased work of breathing Abdomen: soft, no tenderness, Skin: Warm, dry, no erythema, no rash. [] Back: No tenderness, no CVA tenderness. [] Extremities: No cyanosis, right BKA with distal stump showing large 6 x 8 cm necrotic ulcer with surrounding cellulitis approximately 3cm with increased warmth, no crepitus or induration, no active drainage, rash does not extend to the knee and patient is able to flex and extend his knee without difficulty, distal stump skin is warm and dry, no cyanosis Neurologic: Alert and oriented X 3, normal motor function, normal sensory function, no focal deficits noted. [] Psychologic: Affect normal, judgement normal, mood normal. [] EKG: EKG: [] Radiology/Procedures: Radiology/Procedures: IMAGING REPORT Signed PATIENT: HOMA CAMACHOCOUNT: [id number] : 1965 LOCATION: ER AGE: 54 SEX: M EXAM STATUS: REG ER ORD. PHYSICIAN: LEXA RAMIREZ DO REASON: INFECTION, WOUND, RASH HX LOWER EXTREMITY AMPUTEE X 2 YEARS AGO PROCEDURE: KNEE RIGHT 3V Right knee 3 views INDICATION:, Infection. Pressure. History of lower extremity amputee 2 years ago COMPARISON: None. FINDINGS: 3 views right knee show a right below the knee amputation. Diffuse demineralization. No fracture or malalignment. There is undulation to the skin surface that could reflect postsurgical change versus tissue necrosis. No abnormal soft tissue gas is identified. There is mild edema in the right knee soft tissues. No bony erosive changes although the soft tissue defect in the right leg stump appears to extend to the bone surface. Soft tissues also notable for femoral artery stent. IMPRESSION: Osteopenia and degenerative change status post right BKA with an open wound abutting bone but showing no radiographic findings suspicious for osteomyelitis currently. Electronically signed by: Shaneka Escobedo MD (05/14/2020 12:18 PM) [id number] DICTATED AND SIGNED BY: SHANEKA ESCOBEDO MD DATE: 05/14/20 1216 CC: MILLI LEA MD; LEXA RAMIREZ DO ~MTH0 0 Heart Score: Risk Factors: Risk Factors: DM, Current or recent (<one month) smoker, HTN, HLP, family history of CAD, obesity. Risk Scores: Score 0 - 3: 2.5% MACE over next 6 weeks - Discharge Home Score 4 - 6: 20.3% MACE over next 6 weeks - Admit for Clinical Observation Score 7 - 10: 72.7% MACE over next 6 weeks - Early Invasive Strategies Course & Med Decision Making: Course & Med Decision Making Pertinent Labs and Imaging studies reviewed. (See chart for details) Concern for cellulitis of right BKA stump with necrotic ulcer, will need debridement -symptoms are all chronic. X-ray with no obvious osteomyelitis. Patient afebrile and well-appearing. Will prescribe antibiotics for community- acquired MRSA and refer to vascular surgery. Will discharge home with strict ED return precautions were given for worsening rash, fever or neurologic deficits. Encouraged urgent outpatient follow-up with PMD and vascular surgery/wound care center. Life-threatening processes were considered but are low suspicion at this time, given history, physical exam and ED workup. Pt was educated on all prescription medications and adverse effects. All patient's questions were answered and pt was stable at time of discharge. Life/limb-threatening differential includes but is not limited to, trauma (fracture, dislocation, laceration, compartment syndrome, tendon or ligament injury), neurovascular injury or deficit, infection (osteomyelitis, abscess, cellulitis, septic arthritis, necrotizing fasciitis), deep vein thrombosis, renal/cardiac/liver disease, medication adverse effect, lymphedema/anasarca, vascular insufficiency or malignancy, I spoken with the patient and her caregivers. I explained the patient's condition, diagnoses and treatment plan based on the information available to me at this time. I have answered the patient and her caregiver's questions and addressed any concerns. The patient and her caregivers have a good understanding of patient's diagnosis, condition and treatment plan as can be expected at this point. Vital signs have been stable. Patient's condition is stable and appropriate for discharge from the emergency department. Patient will pursue further outpatient evaluation with primary care physician or other designated or consulting physician as outlined in the discharge instructions. The patient and/or caregivers are agreeable to this plan of care and follow-up instructions have been explained in detail. The patient and/or caregivers have received these instructions in written form and have expressed an understanding of the discharge instructions. The patient and/or caregivers are aware that any significant change of condition or worsening of symptoms should prompt immediate return to this or the closest emergency department or call to 911. Sharif Disclaimer: Dragon Disclaimer: This electronic medical record was generated, in whole or in part, using a voice recognition dictation system. Departure Departure: Impression: Primary Impression: PAD (peripheral artery disease) Additional Impressions: Chronic wound of extremity Cellulitis of right lower leg Disposition: 01 DC HOME SELF CARE/HOMELESS Condition: STABLE Referrals: MILLI LEA MD (PCP) Patient Instructions: Cellulitis, Peripheral Vascular Disease Additional Instructions: FOLLOW UP WITH VASCULAR SURGERY: [facility] Address: [address] [place] [address] FOLLOW UP WITH WOUND CARE: [facility] Address: [address], [address] [place] [address] EMERGENCY DEPARTMENT GENERAL DISCHARGE INSTRUCTIONS Thank you for coming to [facility] (ED) today and trusting us with you care. We trust that you had a positivie experience in our Emergency Department. If you wish to speak to the department management, you may call the director at [phone]. YOUR FOLLOW UP INSTRUCTIONS ARE FOLLOWS: 1. Do you have a private Doctor? If you do not have a private doctor, please ask for a resource list of physicians or clinics that may be able to assist you with follow up care. 2. The Emergency Physician has interpreted your x-rays. The X-Ray specialist will also review them. If there is a change in the findings, you will be notified in 48 hours when at all possible. 3. A lab test or culture has been done, your results will be reviewed and you will be notified if you need a change in treatment. ADDITIONAL INSTRUCTIONS AND INFORMATION: 1. Your care today has been supervised by a physician who is specially trained in emergency care. Many problems require more than one evaluation for a complete diagnosis and treatment. We recommend that you schedule your follow up appointment as recommended to ensure complete treatment of you illness or injury. If you are unable to obtain follow up care and continue to have a problem, or if your condition worsens, we recommend that you return to the ED. 2. We are not able to safely determine your condition over the phone nor are we able to give sound medical advice over the phone. For these safety reasons, if you call for medical advice we will ask you to come to the ED for further evaluation. 3. If you have any questions regarding these discharge instructions please call the ED at [phone]. SAFETY INFORMATION: In the interest of safety, wellness, and injury prevention; we encourage you to wear your sealbelt, if you smoke; quite smoking, and we encourage family to use a protective helmet for bicycling and other sporting events that present an increased risk for head injury. IF YOUR SYMPTOMS WORSEN OR NEW SYMPTOMS DEVELOP, OR YOU HAVE CONCERNS ABOUT YOUR CONDITION; OR IF YOUR CONDITION WORSENS WHILE YOU ARE WAITING FOR YOUR FOLLOW UP APPOINTMENT; EITHER CONTACT YOUR PRIMARY CARE DOCTOR, THE PHYSICIAN WHOSE NAME AND NUMBER YOU WERE GIVEN, OR RETURN TO THE ED IMMEDIATELY. Scripts Sulfamethoxazole/Trimethoprim (BACTRIM DS TABLET) 1 Each Tablet 1 TAB PO BID for infection for 10 Days, #20 TAB 0 Refills Prov: LEXA RAMIREZ DO 05/14/20 Cephalexin (CEPHALEXIN) 500 Mg Capsule 1 CAP PO QID for rash for 10 Days, #40 CAP Prov: LEXA RAMIREZ DO 05/14/20 LEXA RAMIREZ DO May 14, 2020 12:39
[2020-05-14] MEDS ORDERED: CEPH500C PO (13:38)
[2020-05-14] MEDS ORDERED: SULF1TAB24 PO (13:38)
== END 2020-05-14 14:00 | disposition home or self-care (01) ==
LOC: ER 10:47
DX: S81.801A Unspecified open wound, right lower leg, initial encounter (principal); I73.9 Peripheral vascular disease, unspecified; L03.115 Cellulitis of right lower limb; F41.9 Anxiety disorder, unspecified; J44.9 Chronic obstructive pulmonary disease, unspecified; F32.9 Major depressive disorder, single episode, unspecified; E11.9 Type 2 diabetes mellitus without complications; K21.9 Gastro-esophageal reflux disease without esophagitis; E78.00 Pure hypercholesterolemia, unspecified; I10 Essential (primary) hypertension; Z89.511 Acquired absence of right leg below knee; X58.XXXA Exposure to other specified factors, initial encounter; Y93.89 Activity, other specified; Y92.89 Other specified places as the place of occurrence of the external cause; Y99.8 Other external cause status
CPT/HCPCS: 73562; 99283

== ENCOUNTER 2020-05-29 17:54 | Emergency (ER) | payer MEDICARE, OTHER ==
[~2020-05-29] VITALS: Ht 175.3 cm; Wt 118.1 kg
[~2020-05-29 17:54] MED LIST changes: +CEPH500C PO; +SULF1TAB24 PO
--- NOTE | 2020-05-29 18:17 | PHYS DOC ---
Past History Past Medical History: Anxiety, COPD, Depression, Diabetes, GERD, High Cholesterol, Hypertension, Pancreatitis Past Surgical History: Other Additional Past Surgical Histo: STENTS TO BOTH LEGS, BKA TO RIGHT LEG, GANGRENE TO GROIN, DEBRIDEMENT SURGE Alcohol Use: None Adult General Chief Complaint Chief Complaint: CHEST PAIN HPI HPI Patient is a 54-year-old male with a past medical history significant for MO status post stent placement not on blood thinners, COPD, diabetes and right BKA who presents with a chief complaint of chest pain. States he woke up this morning somewhere around 10 AM and had a dull achy feeling in his lower chest, just behind his sternum, 5 out of 10 with no radiation. States it has been intermittent, coming and going over the course of the day. Denies any orthopnea, PND, edema. States he has not had any more cough than usual or mucus but when he pushes himself around in the wheelchair seems to get a little more out of breath than usual over the last couple of days. Denies any recent travel, known ill contacts, fevers, Covid/flu symptoms, wheezing, abdominal pain, nausea, vomiting, diarrhea. States he does have breathing treatments at home but has not had to use them. Here in the ED, patient states that the pain is actually subsided and is feeling well and would like to go home. Review of Systems Review of Systems Review of systems otherwise unremarkable except noted in HPI. Allergies Allergies Allergies Coded Allergies Type Severity Reaction Last Updated Verified No Known Drug Allergies 05/29/20 No Physical Exam Physical Exam Constitutional: Well developed, well nourished, no acute distress, non-toxic appearance. [] HENT: Normocephalic, atraumatic, Eyes: conjunctiva normal, no discharge. [] Neck: Normal range of motion, no tenderness Cardiovascular:Heart rate regular rhythm, no murmur [] Lungs & Thorax: Bilateral breath sounds clear to auscultation [] Abdomen: Bowel sounds normal, soft, no tenderness, no masses, no pulsatile masses. [] Skin: Warm, dry, no erythema, no rash. [] Back: No tenderness, Extremities: Left lower extremity normal. Right lower extremity with BKA. Neurologic: Alert and oriented X 3, normal motor function, normal sensory function, no focal deficits noted. [] Psychologic: Affect normal, judgement normal, mood normal. [] Current Patient Data Vital Signs Vital Signs Date Time Temp Pulse Resp B/P (MAP) Pulse Ox O2 Delivery O2 Flow Rate FiO2 05/29/20 18:13 84 20 95 Nasal Cannula 2.0 05/29/20 18:02 98.5 153/87 (109) Lab Results Laboratory Tests Test 05/29/20 18:43 White Blood Count 8.2 x10^3/uL (4.0-11.0) Red Blood Count 3.65 x10^6/uL (4.30-5.70) Hemoglobin 10.5 g/dL (13.0-17.5) Hematocrit 33.8 % (39.0-53.0) Mean Corpuscular Volume 93 fL (79-100) Mean Corpuscular Hemoglobin 29 pg (25-35) Mean Corpuscular Hemoglobin Concent 31 g/dL (31-37) Red Cell Distribution Width 19.9 % (11.5-14.5) Platelet Count 224 x10^3/uL (140-400) Neutrophils (%) (Auto) 78 % (31-73) Lymphocytes (%) (Auto) 13 % (24-48) Monocytes (%) (Auto) 9 % (0-9) Eosinophils (%) (Auto) 0 % (0-3) Basophils (%) (Auto) 1 % (0-3) Neutrophils # (Auto) 6.3 x10^3uL (1.8-7.7) Lymphocytes # (Auto) 1.0 x10^3/uL (1.0-4.8) Monocytes # (Auto) 0.7 x10^3/uL (0.0-1.1) Eosinophils # (Auto) 0.0 x10^3/uL (0.0-0.7) Basophils # (Auto) 0.0 x10^3/uL (0.0-0.2) D-Dimer (Tina) 1.05 mg/L (0.00-0.50) Sodium Level 138 mmol/L (136-145) Potassium Level 3.4 mmol/L (3.5-5.1) Chloride Level 106 mmol/L (98-107) Carbon Dioxide Level 19 mmol/L (21-32) Anion Gap 13 (6-14) Blood Urea Nitrogen 17 mg/dL (8-26) Creatinine 1.3 mg/dL (0.7-1.3) Estimated GFR (Cockcroft-Gault) 57.3 BUN/Creatinine Ratio 13 (6-20) Glucose Level 191 mg/dL (70-99) Calcium Level 8.5 mg/dL (8.5-10.1) Total Bilirubin 0.2 mg/dL (0.2-1.0) Aspartate Amino Transf (AST/SGOT) 18 U/L (15-37) Alanine Aminotransferase (ALT/SGPT) 23 U/L (16-63) Alkaline Phosphatase 183 U/L (46-116) Troponin I Quantitative < 0.017 ng/mL (0-0.055) Total Protein 7.2 g/dL (6.4-8.2) Albumin 2.5 g/dL (3.4-5.0) Albumin/Globulin Ratio 0.5 (1.0-1.7) Lipase 102 U/L (73-393) EKG EKG EKG with a rate of 86, QRS of 122, QTc of 458, no STEMI. Left axis deviation.] Radiology/Procedures Radiology/Procedures [] Heart Score HEART Score for Chest Pain: HEART Score for Chest Pain Response (Comments) Value History Slighlty/Non-Suspicious 0 ECG Normal 0 Age >45 - < 65 1 Risk Factors >3 Risk Factors or Hx CAD 2 Troponin < Normal Limit 0 Total 3 Risk Factors: Risk Factors: DM, Current or recent (<one month) smoker, HTN, HLP, family history of CAD, obesity. Risk Scores: Risk Factors: DM, Current or recent (<one month) smoker, HTN, HLP, family history of CAD, obesity. Course & Med Decision Making Course & Med Decision Making Patient is a 54-year-old male who presents with chest pain Vital signs notable for hypertension. Physical exam noted above. EKG noted and normal. Troponin normal. Heart score of 3. Patient currently asymptomatic. Low risk Wells. Laboratory analysis notable for elevated D-dimer and mildly decreased hemoglobin with normal MCV. Patient denies any history of hematuria, melena/hematochezia or hematemesis/hemoptysis. Patient not on blood thinners. On reassessment patient stated he was back to baseline. Patient stated the main reason he came in is because of his chronic right leg pain due to his BKA. States he is currently seeing wound care clinic as well for this. States that right now is not too bad, 3 out of 10. States he has an appointment with a surgeon in a week. Given dose of pain medication in the emergency department. Patient stated he was feeling better was ready to get dressed and go home. Discussed pain management at home. Advised to call primary care physician or surgeon in the morning first thing to discuss chronic pain management. Advised to come back to the ED immediately with new or concerning symptoms. Family grateful, verbalized understanding and agreed with plan of discharge. [] Dragon Disclaimer Dragon Disclaimer This electronic medical record was generated, in whole or in part, using a voice recognition dictation system. Departure Departure: Impression: Primary Impression: Chest pain Additional Impression: Chronic leg pain Condition: IMPROVED Referrals: MILLI LEA MD (PCP) Patient Instructions: Chest Pain (Nonspecific) Additional Instructions: Please read all the attached information. As discussed, please begin a pain regimen at home including your hydrocodone and ibuprofen as discussed. You can also keep your leg elevated and use ice as needed. Please call your primary care physician and your surgeon in the morning to discuss your ED visit, and set up a post ER visit as soon as possible to discuss chronic pain management. Please also let your primary care physician know that you were having some chest pain/burning and need for GERD management/evaluation possible follow-up with cardiology. Please come back to the emergency department immediately with any new or concerning symptoms as discussed. Problem Qualifiers DEN WASSERMAN MD May 29, 2020 18:17
[2020-05-29 19:02] LABS: BASO % 1 % (0-3); EOS % 0 % (0-3); HEMATOCRIT 33.8 % (39.0-53.0); HEMOGLOBIN 10.5 g/dL (13.0-17.5); LYMPH % 13 % (24-48); MEAN CORPUSCULAR HEMOGLOBIN 29 pg (25-35); MEAN CORPUSCULAR HGB CONC 31 g/dL (31-37); MEAN CORPUSCULAR VOLUME 93 fL (79-100); MONO # 0.7 x10^3/uL (0.0-1.1); MONO % 9 % (0-9); NEUT # 6.3 x10^3uL (1.8-7.7); NEUT % 78 % (31-73); PLATELET COUNT 224 x10^3/uL (140-400); RED BLOOD COUNT 3.65 x10^6/uL (4.30-5.70); RED CELL DISTRIBUTION WIDTH 19.9 % (11.5-14.5); WHITE BLOOD COUNT 8.2 x10^3/uL (4.0-11.0)
[2020-05-29 19:18] LABS: CALCIUM 8.5 mg/dL (8.5-10.1); CREATININE 1.3 mg/dL (0.7-1.3); GFR 57.3; POTASSIUM 3.4 mmol/L (3.5-5.1)
[2020-05-29 19:21] LABS: ALBUMIN 2.5 g/dL (3.4-5.0); ALBUMIN/GLOBULIN RATIO 0.5 (1.0-1.7); TOTAL BILIRUBIN 0.2 mg/dL (0.2-1.0); TOTAL PROTEIN 7.2 g/dL (6.4-8.2)
--- NOTE | 2020-05-29 19:47 | RAD ---
Chest AP portable at 1848: Reason for examination: Chest pain. Comparison is made to previous study dated 12/11/2019. The heart size is normal. Mediastinum is unremarkable. Lung barcenas are clear except for small calcifi ed granuloma in the left lower lobe which is unchanged. No acute bony abnormalities are seen. Impression: No acute cardiopulmonary disease. Electronically signed by: Marcela Santana MD (05/29/2020 7:45 PM) [facility]
[2020-05-29] MEDS ORDERED: IOHEXOL 350 MG/ML 100 ML VIAL. IV ONE (20:00)
--- NOTE | 2020-05-29 21:13 | RAD ---
CT angiogram of the chest, abdomen and pelvis: Reason for examination: Chest and epigastric pain. Helical images were obtained through the chest, abdomen and pelvis with intravenous administration of 100 cc Omnipaque 350 using angiographic protocol. 3-D MIPS reconstruction was performed in sagittal and coronal planes. Volume rendered image was obtained. Exposure: One or more of the following individualized dose reduction techniques were utilized for thi s examination: 1. Automated exposure control 2. Adjustment of the mA and/or kV according to patient size 3. Use of iterative reconstruction technique. No abnormality seen at the thyroid gland. The trachea and mainstem bronchi show no intraluminal lesio ns. No abnormality seen at the esophagus. The thoracic aorta shows no aneurysmal dilatation or dissec tion. The heart size is normal with no pericardial effusion. A pulmonary embolus is not identified ho wever the injection phase is not optimal for evaluation of pulmonary embolus. There is a calcified gr anuloma adjacent to the pleural surface in the left lower lobe. No infiltrates or pleural effusions a re seen. No acute bony abnormality is seen in the thorax. No abnormality seen at the liver, spleen or pancreas. The adrenal glands bilaterally appear somewhat prominent but symmetric. The abdominal aorta and inferior vena cava show no acute abnormalities. Ther e is arteriosclerotic vascular calcification in the aorta, iliac and femoral arteries and there appea rs to be stenosis at the common femoral arteries bilaterally. The gastric wall appears thickened but the stomach is empty and nondistended. No abnormality seen at the duodenum. The small intestinal trac t shows no wall thickening but there is some dilatation of the distal small intestine in the right lo wer quadrant. No obstruction is evident. No abnormality seen at the appendix. The kidneys show no tia al masses, renal calculi, hydronephrosis or evidence of obstructive uropathy. No abnormality seen at the bladder, prostate gland or seminal vesicles. No free fluid or free air is seen in the abdomen or pelvis. There is some bandlike density in the right inguinal region which may reflect recent catheterization or scarring. Recommend clinical correlation. No acute bony abnormaliti es are seen. IMPRESSION: No acute abnormality evident in the chest. Gastric wall appears thickened but the stomach is empty and nondistended. Focal dilatation of the small intestinal tract in the right lower quadrant but no wall thickening or apparent obstruction. Arteriosclerotic calcification in the aorta, iliac and femoral arteries bilaterally with stenosis kamran aterally at the common femoral arteries. Bandlike density in the right inguinal region possibly reflecting recent catheterization or scarring. Recommend clinical correlation. Electronically signed by: Marcela Santana MD (05/29/2020 9:11 PM) [facility]
[2020-05-29] MEDS ORDERED: IBUPROFEN 400 MG TABLET. PO ONE (21:30)
[2020-05-29] MEDS ORDERED: oxyCODONE/APAP 5/325 1 TAB TABLET PO ONE (21:30)
[2020-05-29 21:35] VITALS: BP 138/90
--- NOTE | 2020-05-30 07:58 | EKG ---
[address] [address] Test Date: 2020-05-29 Test Time: 18:12:06 Pat Name: HOMA CAMACHO Department: Room: Gender: M Acid Correction Hand: ARMANI : 1965 Requested By: DEN WASSERMAN Order Number: [id number] Reading MD: Measurements Intervals Thurmond Rate: 86 P: 48 MS: 150 QRS: -45 QRSD: 122 T: 41 QT: 380 QTc: 458 Interpretive Statements SINUS RHYTHM ABNORMAL LEFT AXIS DEVIATION ABNORMAL ECG RI6.02 No previous ECG available for comparison
== END 2020-05-29 21:44 | disposition home or self-care (01) ==
LOC: ER 17:54
DX: R07.89 Other chest pain (principal); G89.29 Other chronic pain; M79.604 Pain in right leg; F41.9 Anxiety disorder, unspecified; J44.9 Chronic obstructive pulmonary disease, unspecified; E11.9 Type 2 diabetes mellitus without complications; K21.9 Gastro-esophageal reflux disease without esophagitis; E78.00 Pure hypercholesterolemia, unspecified; I10 Essential (primary) hypertension; I25.2 Old myocardial infarction
CPT/HCPCS: 36415; 71045; 71275; 74174; 80053; 83605; 83690; 84484; 85025; 85379; 93005; 99285; Q9967

== ENCOUNTER → 2021-05-21 | Outpatient (CLI) | payer MEDICARE, OTHER ==
[~2021-05-21] MED LIST changes: -ISOS20TA2 PO; +ISOS20TA6 PO; -LISI2.5T PO; +LISI2.5T12 PO; +OLAN5TAB67 PO; -OLAN5TAB9 PO; -OMEP40CA45 PO; +OMEP40CA7 PO
--- NOTE | 2021-05-21 15:56 | RAD ---
Limited ultrasound evaluation, distal right lower extremity COMPARISON STUDY: None Discussion: Limited ultrasound evaluation of the patient's distal right lower extremity was performed . Notably the patient is status post right [id number] amputation. The patient has been having dis comfort. No abnormal mass, or focal fluid collection is identified. No abnormal blood flow seen. Sonographic f indings of scarring noted, which correlate with overlying skin postoperative changes. IMPRESSION: No focal sonographic abnormality is identified Electronically signed by: Paul Nazario MD (05/21/2021 3:54 PM) [id number]
== END ==
LOC: US 13:49
PROVIDERS: ATTEND Family Medicine
DX: S78.111A Complete traumatic amputation at level between right hip and knee, initial encounter (principal); T87.89 Other complications of amputation stump; Z89.611 Acquired absence of right leg above knee; X58.XXXA Exposure to other specified factors, initial encounter; Y93.89 Activity, other specified; Y92.89 Other specified places as the place of occurrence of the external cause; Y99.8 Other external cause status
CPT/HCPCS: 76881